=== PATIENT | female | born 1985 | race Two or more races ===

== ENCOUNTER 2018-05-25 09:22 | Emergency (ER) | payer BC ==
[~2018-05-25] VITALS: Ht 170.2 cm; Wt 68.0 kg
[2018-05-25 09:44] VITALS: BP 106/68
--- NOTE | 2018-05-25 10:29 | Emergency Room Report ---
History of Present Illness General Chief Complaint: Laceration Source: Patient Present Illness HPI 33F cut herself using kitchen knife this morning; knife stabbed her in the right palm. No other injury/complaint. Allergies: Coded Allergies: No Known Allergies (Unverified , 05/25/18) Patient History Last Menstrual Period: 05/18/18 Nursing Documentation-[facility] Past Medical History: No Stated History Review of Systems Constitutional: Reports: no symptoms Respiratory: Reports: no symptoms Cardiovascular: Reports: no symptoms Gastrointestinal: Reports: no symptoms Musculoskeletal: Reports: see HPI Psychiatric: Reports: no symptoms Neurological: Reports: no symptoms All Other Systems: limited Physical Exam Vital Signs Date Time Temp Pulse Resp B/P (MAP) Pulse Ox O2 Delivery O2 Flow Rate FiO2 05/25/18 09:24 97.5 71 18 106/68 95 Room Air General Appearance: well appearing, no apparent distress Head: normocephalic, atraumatic ENT: hearing grossly normal, normal voice Neck: full range of motion, supple Respiratory: no respiratory distress, speaking full sentences Musculoskeletal: other - one cm shallow lac mid-palm, mid 3rd metacarpal. good rom all phalynges, no fb. Neurologic: alert, normal gait Psychiatric: mood/affect normal Skin: no rash Procedures Laceration/Wound Repair Laceration/Wound Repair : Consent: Verbal Wound Location: upper extremity Wound's Depth, Shape: superficial Wound Length (cm): 1 Wound Explored: clean Irrigated w/ Saline (ccs): 20 Betadine Prep?: Yes Wound Repaired With: Dermabond Sterile Dressing Applied?: Yes Patient Tolerated: Well Complications: None Medical Decision Making Diagnostic Impression: Primary Impression: Laceration Last Vital Signs Date Time Temp Pulse Resp B/P (MAP) Pulse Ox O2 Delivery O2 Flow Rate FiO2 05/25/18 09:44 97.5 71 18 106/68 95 Room Air Status: improved Disposition: HOME, SELF-CARE Scripts No Active Prescriptions or Reported Meds Referrals: NOT CHOSEN IPA/MD,REFERRING (PCP) Patient Instructions: Laceration Care, Adult Chris Hernandez M.D. May 25, 2018 10:29
[2018-05-25 10:51] VITALS: BP 106/68
== END 2018-05-25 10:55 | disposition home or self-care (01) ==
LOC: EMR 10:00
DX: S61.411A Laceration without foreign body of right hand, initial encounter (principal); W26.0XXA Contact with knife, initial encounter; Y92.000 Kitchen of unspecified non-institutional (private) residence as the place of occurrence of the external cause
CPT/HCPCS: 99282